=== PATIENT | female | born 1990 | race Two or more races ===

== ENCOUNTER 2018-04-07 00:54 | Emergency (ER) | payer OTHER ==
[~2018-04-07] VITALS: Ht 165.1 cm; Wt 86.2 kg
--- NOTE | 2018-04-07 01:35 | NUR ---
Patient discharged to home in stable conditon. Written and verbal after care instructions given. Patient verbalizes understanding of instructions.
[2018-04-07 01:37] VITALS: BP 118/76
== END 2018-04-07 01:41 | disposition home or self-care (01) ==
LOC: ER 01:01
DX: S62.666A Nondisplaced fracture of distal phalanx of right little finger, initial encounter for closed fracture (principal); B35.0 Tinea barbae and tinea capitis; W19.XXXA Unspecified fall, initial encounter; Y93.89 Activity, other specified; Y92.89 Other specified places as the place of occurrence of the external cause; Y99.8 Other external cause status
CPT/HCPCS: 73130; A4663

== ENCOUNTER 2018-06-07 22:46 | Emergency (ER) | payer OTHER ==
[~2018-06-07] VITALS: Ht 165.1 cm; Wt 86.2 kg
--- NOTE | 2018-06-07 23:03 | NUR ---
Dr Coello into eval patient
--- NOTE | 2018-06-08 00:45 | NUR ---
Patient discharged to home in stable conditon. Written and verbal after care instructions given. Patient verbalizes understanding of instructions. Walked out of ER with no distress noted
[2018-06-08 00:46] VITALS: BP 122/76
== END 2018-06-08 00:47 | disposition home or self-care (01) ==
LOC: ER 22:47
DX: S62.623A Displaced fracture of middle phalanx of left middle finger, initial encounter for closed fracture (principal); X58.XXXA Exposure to other specified factors, initial encounter; Y93.89 Activity, other specified; Y92.89 Other specified places as the place of occurrence of the external cause; Y99.8 Other external cause status
CPT/HCPCS: 29130; 73130; 99284; A4663

== ENCOUNTER 2019-02-08 14:28 | Emergency (ER) | payer OTHER ==
[~2019-02-08] VITALS: Ht 165.1 cm; Wt 81.6 kg
[2019-02-08] MEDS ORDERED: IBUPROFEN 600 MG TABLET ONE (15:27)
--- NOTE | 2019-02-08 15:29 | NUR ---
800mg po Ibuprofen was given with food. Patient discharged to home in stable conditon. Written and verbal after care instructions given to patient. Patient verbalizes understanding of instructions. Patient left ER with brisk steady gait.
[2019-02-08] MEDS ORDERED: IBUPROFEN 800 MG TABLET PO ONE (15:30)
[2019-02-08] MEDS ORDERED: IBUPROFEN 200 MG TABLET ONE (15:31)
== END 2019-02-08 15:32 | disposition home or self-care (01) ==
LOC: ER 14:28
DX: R07.89 Other chest pain (principal); X50.1XXA Overexertion from prolonged static or awkward postures, initial encounter; Y93.89 Activity, other specified; Y92.89 Other specified places as the place of occurrence of the external cause; Y99.8 Other external cause status
CPT/HCPCS: 71045; A4663

== ENCOUNTER 2019-10-08 07:42 | Emergency (ER) | payer OTHER ==
[~2019-10-08] VITALS: Ht 165.1 cm; Wt 90.7 kg
[2019-10-08 08:36] LABS: *BILIRUBIN,URIN NEGATIVE (NEGATIVE); *BLOOD, URINE NEGATIVE (NEGATIVE); *CLARITY,URINE HAZY (CLEAR); *COLOR,URINE YELLOW (YELLOW); *KETONES,URINE TRACE (NEGATIVE); *UROBILINOGEN,URINE 0.2 E.U./dl (NORMAL); LEUKOCYTE ESTERASE ,URINE NEGATIVE (NEGATIVE); NITRITE, URINE NEGATIVE (NEGATIVE); PH,URINE 6.5 (5.0-8.0); UGLUCOSE NEGATIVE (NEGATIVE)
[2019-10-08 08:40] LABS: RBC,URINE 0-3 /HPF (0-3)
[2019-10-08 08:41] LABS: BACTERIA,URINE FEW /HPF (NONE SEEN); MUCUS,URINE FEW /LPF (0-FEW); SQUAMOUS EPITHELIAL CELL,UR MANY /HPF (NONE SEEN); WBC,URINE 0-3 /HPF (0-3)
--- NOTE | 2019-10-08 08:47 | NUR ---
Female clinical account manager accompanied female patient for ([employer]).
[2019-10-08 09:29] VITALS: BP 104/69
--- NOTE | 2019-10-08 09:32 | NUR ---
Patient discharged to home in stable conditon. Written and verbal after care instructions given. Patient verbalizes understanding of instructions.
== END 2019-10-08 09:32 | disposition home or self-care (01) ==
LOC: ER 07:42
DX: O26.891 Other specified pregnancy related conditions, first trimester (principal); R10.84 Generalized abdominal pain; O30.001 Twin pregnancy, unspecified number of placenta and unspecified number of amniotic sacs, first trimester; Z3A.01 Less than 8 weeks gestation of pregnancy
CPT/HCPCS: 36415; 76856; A4663

== ENCOUNTER 2019-10-19 02:03 | Emergency (ER) | payer OTHER ==
[~2019-10-19] VITALS: Ht 165.1 cm; Wt 95.3 kg
[2019-10-19 02:39] LABS: BASOPHILS # (AUTO) 0.1 K/uL (0.0-8.0); BASOPHILS % (AUTO) 0.6 % (0.0-2.0); EOSINOPHILS # (AUTO) 0.2 K/uL (0.0-0.7); EOSINOPHILS % (AUTO) 1.2 % (0.0-7.0); HEMATOCRIT 39.1 % (31.2-41.9); HEMOGLOBIN 13.5 g/dL (10.9-14.3); LYMPHOCYTES # (AUTO) 2.9 K/uL (20.0-40.0); LYMPHOCYTES % (AUTO) 21.3 % (20.5-51.5); MEAN CORPUSCULAR HEMOGLOBIN 31.5 uug (24.7-32.8); MEAN CORPUSCULAR HGB CONC 34 g/dL (32.3-35.6); MEAN CORPUSCULAR VOLUME 91.6 fL (75.5-95.3); MONOCYTES # (AUTO) 0.9 K/uL (2.0-10.0); MONOCYTES % (AUTO) 6.9 % (0.0-11.0); NEUTROPHILS # (AUTO) 9.5 K/uL (1.8-8.9); PLATELET COUNT (AUTO) 220 K/uL (179-408); RED BLOOD CELL COUNT(AUTO) 4.27 MIL/uL (3.63-4.92); WHITE BLOOD COUNT (AUTO) 13.5 K/uL (3.8-11.8)
[2019-10-19 02:47] LABS: CREATININE 0.7 mg/dL (0.6-1.3); POTASSIUM 3.8 mmol/L (3.5-5.1)
[2019-10-19] MEDS ORDERED: ACETAMINOPHEN ES 500 MG TABLET PO ONE (03:15)
[2019-10-19] MEDS ORDERED: ACETAMINOPHEN ES 500 MG TABLET ONE (03:55)
--- NOTE | 2019-10-19 03:57 | NUR ---
NE HEAR TONE HEARD BY ME OR SANTI [place]AS[facility] USING DOPPLER WE HAVE AVAILABLE IN THE ER. DR. AFSHIN BARCENAS.
--- NOTE | 2019-10-19 04:23 | NUR ---
CHAPERONED WITH ERMD FOR PELVIC EXAM PRIVACY PROVIDED KEPT PT CALM, WARM AND COMFORTABLE NAD RA
--- NOTE | 2019-10-19 04:44 | NUR ---
HEART TONES HEARD WITH DOPPLER, DR PEPE MADE AWARE.
--- NOTE | 2019-10-19 04:47 | NUR ---
Patient discharged to home in stable conditon. Written and verbal after care instructions given. Patient verbalizes understanding of instructions. PATIENT LEFT WITH STABLE GAIT.
[2019-10-19 04:49] VITALS: BP 107/63
== END 2019-10-19 04:49 | disposition home or self-care (01) ==
LOC: ER 02:05
DX: O26.891 Other specified pregnancy related conditions, first trimester (principal); O30.001 Twin pregnancy, unspecified number of placenta and unspecified number of amniotic sacs, first trimester; R10.9 Unspecified abdominal pain; Z3A.08 8 weeks gestation of pregnancy
CPT/HCPCS: 36415; 85025; 86850; 86900; 86901; A4663; A9150